=== PATIENT | male | born 1980 | race Caucasian/White ===

== ENCOUNTER 2017-04-30 23:29 | Emergency (ER) | payer SELFPAY ==
[~2017-04-30] VITALS: Ht 167.6 cm; Wt 83.9 kg
[2017-04-30] MEDS ORDERED: CELEXA20 MG PO (23:38)
[2017-04-30] MEDS ORDERED: BACTRIM DS 8001 TA1 PO (23:53)
[2017-05-01 00:01] LABS: RED BLOOD COUNT 4.89 10*6/uL (4.50-5.90); WHITE BLOOD COUNT 13.1 10*3/uL (4.8-10.8)
[2017-05-01 00:02] LABS: BASO # 0.1 10*3/uL (0.0-0.1); BASO % 0.4 % (0.0-1.0); EOS % 0.3 % (1.0-4.0); HEMOGLOBIN 14.9 g/dl (14.0-18.0); IG # 0.1 10*3/uL (0.0-0.1); LYMPH # 2.4 10*3/uL (1.3-4.4); LYMPH % 18.6 % (27.0-41.0); MEAN CORPUSCULAR HGB 30.5 pg (27.0-31.0); MEAN CORPUSCULAR HGB CONC 33.9 g/dl (33.0-37.0); MONO # 0.9 10*3/uL (0.1-1.0); NEUT # 9.5 10*3/uL (2.3-7.9); NEUT % 72.8 % (47.0-73.0); PLATELET COUNT AUTOMATED 264 10*3/uL (130-400); RED CELL DISTRI WIDTH 12.7 % (0-14.5)
[2017-05-01 01:03] LABS: BUN 13 mg/dl (7-24); CARBON DIOXIDE 27 mmol/L (21-32); CHLORIDE 104 mmol/L (98-107); EST GLOM FILT AFRICAN AMERICAN > 60 ml/min; GLUCOSE 89 mg/dL (65-99); POTASSIUM 3.3 mmol/L (3.5-5.1); SODIUM 139 mmol/L (136-145)
== END 2017-05-01 02:35 | disposition home or self-care (01) ==
LOC: ED 23:29
PROVIDERS: Emergency Medicine
DX: L02.214 Cutaneous abscess of groin (principal); Z91.013 Allergy to seafood; Z91.040 Latex allergy status; Z79.899 Other long term (current) drug therapy

== ENCOUNTER 2017-05-02 15:13 | Inpatient (IN) | payer SELFPAY ==
[~2017-05-02] VITALS: Ht 167.6 cm; Wt 74.0 kg
[~2017-05-02 15:13] MED LIST: BACTRIM DS 8001 TA1 PO; CELEXA20 MG PO
[2017-05-02 15:31] VITALS: BP 158/86
[2017-05-02 16:00] LABS: BASO # 0.1 10*3/uL (0.0-0.1); BASO % 0.4 % (0.0-1.0); EOS # 0.1 10*3/uL (0.0-0.4); EOS % 0.4 % (1.0-4.0); HEMOGLOBIN 14.9 g/dl (14.0-18.0); LYMPH # 3.2 10*3/uL (1.3-4.4); LYMPH % 26.1 % (27.0-41.0); MEAN CELL VOLUME 88.7 fl (80.0-94.0); MEAN CORPUSCULAR HGB 30.7 pg (27.0-31.0); MEAN CORPUSCULAR HGB CONC 34.7 g/dl (33.0-37.0); MEAN PLATELET VOLUME 10.7 fl (9.6-12.3); MONO # 0.9 10*3/uL (0.1-1.0); NEUT % 65.9 % (47.0-73.0); PLATELET COUNT AUTOMATED 296 10*3/uL (130-400); RED BLOOD COUNT 4.85 10*6/uL (4.50-5.90); RED CELL DISTRI WIDTH 12.6 % (0-14.5); WHITE BLOOD COUNT 12.1 10*3/uL (4.8-10.8)
[2017-05-02 16:08] LABS: PROTHROMBIN TIME 10.5 SECONDS (9.0-12.4)
[2017-05-02 16:17] LABS: ALBUMIN 3.4 gm/dl (3.1-4.5); ALKALINE PHOSPHATASE 111 U/L (45-117); BILIRUBIN, TOTAL 0.9 mg/dl (0.2-1.0); BUN 7 mg/dl (7-24); CARBON DIOXIDE 23 mmol/L (21-32); CHLORIDE 106 mmol/L (98-107); EST GLOM FILT AFRICAN AMERICAN > 60 ml/min; GLUCOSE 100 mg/dL (65-99); POTASSIUM 4.2 mmol/L (3.5-5.1); SGOT/AST 24 IU/L (3-35); SGPT/ALT 41 U/L (12-78); SODIUM 138 mmol/L (136-145); TOTAL PROTEIN 8.1 gm/dL (6.4-8.2)
[2017-05-02 18:00] VITALS: BP 127/71; BP 127/77
[2017-05-02 20:00] VITALS: BP 124/59
[2017-05-03] VITALS: BP 123/67
[2017-05-03 06:02] LABS: BUN 8 mg/dl (7-24); CARBON DIOXIDE 25 mmol/L (21-32); CHLORIDE 107 mmol/L (98-107); EST GLOM FILT AFRICAN AMERICAN > 60 ml/min; GLUCOSE 75 mg/dL (65-99); POTASSIUM 3.8 mmol/L (3.5-5.1); SODIUM 140 mmol/L (136-145)
[2017-05-03 06:03] LABS: BASO % 0.4 % (0.0-1.0); EOS # 0.1 10*3/uL (0.0-0.4); EOS % 1.4 % (1.0-4.0); HEMATOCRIT 39.8 % (42.0-52.0); HEMOGLOBIN 13.4 g/dl (14.0-18.0); LYMPH # 2.7 10*3/uL (1.3-4.4); MEAN CELL VOLUME 91.7 fl (80.0-94.0); MEAN CORPUSCULAR HGB 30.9 pg (27.0-31.0); MEAN CORPUSCULAR HGB CONC 33.7 g/dl (33.0-37.0); MONO # 0.7 10*3/uL (0.1-1.0); MONO % 7.1 % (3.0-9.0); NEUT # 6.5 10*3/uL (2.3-7.9); NEUT % 63.8 % (47.0-73.0); PLATELET COUNT AUTOMATED 271 10*3/uL (130-400); RED BLOOD COUNT 4.34 10*6/uL (4.50-5.90); RED CELL DISTRI WIDTH 12.8 % (0-14.5); WHITE BLOOD COUNT 10.1 10*3/uL (4.8-10.8)
[2017-05-03 08:00] VITALS: BP 136/69
[2017-05-03 16:00] VITALS: BP 123/60
[2017-05-03 22:14] VITALS: BP 93/52
[2017-05-04] VITALS: BP 133/78
[2017-05-04 06:40] LABS: BASO # 0.1 10*3/uL (0.0-0.1); BASO % 0.8 % (0.0-1.0); EOS # 0.3 10*3/uL (0.0-0.4); HEMATOCRIT 38.3 % (42.0-52.0); HEMOGLOBIN 12.6 g/dl (14.0-18.0); LYMPH # 2.5 10*3/uL (1.3-4.4); LYMPH % 39.3 % (27.0-41.0); MEAN CELL VOLUME 93.9 fl (80.0-94.0); MEAN CORPUSCULAR HGB 30.9 pg (27.0-31.0); MEAN CORPUSCULAR HGB CONC 32.9 g/dl (33.0-37.0); MEAN PLATELET VOLUME 10.6 fl (9.6-12.3); MONO # 0.5 10*3/uL (0.1-1.0); MONO % 7.5 % (3.0-9.0); NEUT % 46.9 % (47.0-73.0); PLATELET COUNT AUTOMATED 269 10*3/uL (130-400); RED BLOOD COUNT 4.08 10*6/uL (4.50-5.90); RED CELL DISTRI WIDTH 12.9 % (0-14.5); WHITE BLOOD COUNT 6.4 10*3/uL (4.8-10.8)
[2017-05-04 07:59] VITALS: BP 120/66
[2017-05-04 12:00] VITALS: BP 133/81
[2017-05-04 16:00] VITALS: BP 117/57
[2017-05-04 20:00] VITALS: BP 126/64
[2017-05-05] VITALS: BP 154/80
[2017-05-05 08:00] VITALS: BP 117/61
[2017-05-05 12:00] VITALS: BP 100/99
[2017-05-05 16:00] VITALS: BP 125/63
[2017-05-05 20:00] VITALS: BP 123/85; BP 137/77
[2017-05-06] VITALS: BP 140/82
[2017-05-06 06:21] LABS: BUN 8 mg/dl (7-24); EST GLOM FILT AFRICAN AMERICAN > 60 ml/min
[2017-05-06 06:41] LABS: VANCOMYCIN TROUGH 26.4 ug/mL (10-20)
[2017-05-06 08:00] VITALS: BP 125/65
[2017-05-06] MEDS ORDERED: ACETAMINOPHEN-H1 TA2 PO (10:46)
[2017-05-06] MEDS ORDERED: BACTRIM DS 8001 TA1 PO (10:46)
== END 2017-05-06 11:59 | disposition home or self-care (01) | DRG 872 ==
LOC: ED 15:13 → 4E 15:53 → EDHOLD 15:53 → 4E 16:24
PROVIDERS: Internal Medicine; Physician Assistant; Student in an Organized Health Care Education/Training Program
DX: A41.9 Sepsis, unspecified organism (principal); E44.1 Mild protein-calorie malnutrition; L03.314 Cellulitis of groin; L02.214 Cutaneous abscess of groin; F41.9 Anxiety disorder, unspecified; Z72.89 Other problems related to lifestyle; Z82.69 Family history of other diseases of the musculoskeletal system and connective tissue; Z91.013 Allergy to seafood; Z68.29 Body mass index [BMI] 29.0-29.9, adult; Z79.899 Other long term (current) drug therapy